=== PATIENT | male | born 1970 | race Caucasian/White ===

== ENCOUNTER → 2020-12-05 | Outpatient (CLI) | payer OTHER ==
--- NOTE | 2020-12-05 12:28 | Diagnostic Imaging Report ---
Thoracic spine 1155h. INDICATION: Upper back pain AP and lateral views were obtained. The vertebral body heights and alignment are generally within normal limits. There is moderate degenerative disc disease throughout the thoracic spine. There is no fracture or acute bony abnormality evident. There is no sign of a paraspinal mass. IMPRESSION: 1. There is no evidence for an acute bony abnormality. 2. If clinical concern regarding an underlying abnormality persists and further imaging is desired, then MRI would be recommended. Dictated by: Dictated on workstation # [id number]
== END ==
LOC: RAD FS 11:36
DX: M54.6 Pain in thoracic spine (principal)
CPT/HCPCS: 72070